=== PATIENT | male | born 1960 | race Caucasian/White ===

== ENCOUNTER 2017-06-02 09:07 | Emergency (ER) | payer BC, OTHER ==
--- NOTE | 2017-06-02 09:14 | PDOC ---
History of Present Illness - General Chief Complaint: Bite Stated Complaint: cat bite; he startled the cat yesterday and it bit his right index finger btwn the dip and pip joints.; slight swelling of finger and "annoying" pain. tetanus toxoid UTD 3 years ago. Time Seen by Provider: 06/02/17 09:14 Past History - Travel Traveled outside of the country in the last 30 days: No Close contact w/someone who was outside of country & ill: No - Past Medical History Allergies/Adverse Reactions: Allergies Allergy/AdvReac Type Severity Reaction Status Date / Time Penicillins Allergy Intermediate Rash Verified 06/02/17 09:07 Home Medications: Ambulatory Orders Aspirin Coated [Ecotrin -] 81 mg PO BID 08/29/13 Cholecalciferol (Vitamin D3) [Vitamin D3] 1,000 unit PO DAILY 08/29/13 Atorvastatin Ca [Lipitor] 20 mg PO HS 06/02/17 Clindamycin [Cleocin -] 300 mg PO Q6HPO #28 capsule 06/02/17 Dapagliflozin Propanediol [Farxiga] 5 mg PO DAILY 06/02/17 Ibuprofen [Motrin -] 600 mg PO TID #21 tablet 06/02/17 Insulin Glargine,Hum.rec.anlog [Lantus Solostar PEN (NF)] 30 units SQ DAILY Lisinopril [Prinivil] 10 mg PO DAILY 06/02/17 Metformin HCl [Glucophage] 1,000 mg PO DAILY 06/02/17 Diabetes: Yes Hypercholesterolemia: Yes - Immunization History Td Vaccination: No - Psycho/Social/Smoking Cessation Hx Anxiety: No Suicidal Ideation: No Smoking Status: No Smoking History: Never smoked Number of Cigarettes Smoked Daily: 0 Hx Alcohol Use: No Drug/Substance Use Hx: No Substance Use Type: Alcohol Review of Systems - Review of Systems Constitutional: No: Symptoms Reported, See HPI, Chills, Diaphoresis, Fever, Loss of Appetite, Malaise, Night Sweats, Weakness, Weight Stable, Unintentional Wgt. Loss, Unexplained wgt Loss, Other HEENTM: No: Symptoms Reported, See HPI, Eye Pain, Blurred Vision, Tearing, Recent change in vision, Double Vision, Cataracts, Ear Pain, Ocular Prothesis, Ear Discharge, Nose Pain, Nose Congestion, Tinnitus, Nose Bleeding, Hearing Loss , Throat Pain, Throat Swelling, Mouth Pain, Dental Problems, Difficulty Swallowing, Mouth Swelling, Other Respiratory: No: Symptoms reported, See HPI, Cough, Orthopnea, Shortness of Breath, SOB with Exertion, SOB at Rest, Stridor, Wheezing, Productive cough, Hemoptysis, Other ABD/GI: No: Symptoms Reported, See HPI, Abdominal Distended, Abd. Pain w/ defecation, Blood Streaked Bowels, Constipated, Diarrhea, Difficulty Swallowing , Nausea, Poor Appetite, Poor Fluid Intake, Rectal Bleeding, Vomiting, Indigestion, Abdominal cramping, Tarry Stools, Other : No: Symptoms Reported, See HPI, Burning, Dysuria, Discharge, Frequency, Flank Pain, Hematuria, Incontinence, Pain, Urgency, Testicular Mass, Testicular Swelling, Lesions, Testicular Pain, Other Musculoskeletal: Yes: Joint Swelling, Joint Stiffness (index finger on right). No: Symptoms Reported, See HPI, Back Pain, Gout, Joint Pain, Muscle Pain, Muscle Weakness, Neck Pain, Other Integumentary: No: Symptoms Reported, See HPI, Bruising, Change in Color, Change in Hair/Nails, Dryness, Erythema, Flushing, Lesions, Lumps, Pallor, Pruritus, Rash, Sweating, Other Neurological: No: Symptoms reported, See HPI, Headache, Numbness, Paresthesia, Pre-Existing Deficit, Seizure, Tingling, Tremors, Weakness, Unsteady Gait, Ataxia, Dizziness, Other *Physical Exam - Vital Signs Last Vital Signs Temp Pulse Resp BP Pulse Ox 99.0 F 76 18 151/82 100 06/02/17 09:07 06/02/17 09:07 06/02/17 09:07 06/02/17 09:07 06/02/17 09:07 - Physical Exam General Appearance: Yes: Nourished, Appropriately Dressed. No: Apparent Distress HEENT: positive: EOMI, SHAILESH, Normal ENT Inspection, Normal Voice, Symmetrical, TMs Normal, Pharynx Normal Neck: positive: Trachea midline, Normal Thyroid, Supple Respiratory/Chest: positive: Lungs Clear, Normal Breath Sounds Cardiovascular: positive: Regular Rhythm, Regular Rate, S1, S2 Gastrointestinal/Abdominal: positive: Normal Bowel Sounds, Soft Musculoskeletal: positive: Normal Inspection Extremity: positive: Normal Capillary Refill, Swelling (right index finger slight swelling but no redness; no lymphangitis). 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 Finger was more swollen by last night and slight;y more swollen today. Pt received vanco and clinda and home with clinda. tdap UTD ; last received TDAP vaccine 3 yrs ago when he stepped on a nail. Finger XR normal WBC baseline 10 today. Pt is to return for worsening swelling and or lymphangitis up the arm. No fever. *DC/Admit/Observation/Transfer Diagnosis at time of Disposition: Cat bite of finger - Discharge Dispostion Disposition: HOME Condition at time of disposition: Improved Admit: No - Prescriptions Prescriptions: Clindamycin [Cleocin -] 300 mg PO Q6HPO #28 capsule Ibuprofen [Motrin -] 600 mg PO TID #21 tablet - Patient Instructions Printed Discharge Instructions: How to Care for a Domestic Animal Bite, DI for Animal Bites - Post Discharge Activity Work/School Note: Back to Work
[2017-06-02 09:25] VITALS: BP 151/82; PULSE 76; TEMP 99; BMI 39.3
[2017-06-02] MEDS ORDERED: CLINDAMYCIN 900 MG PREMIX IVPB 50 ML IVPB ONE (09:47)
[2017-06-02] MEDS ORDERED: VANCOMYCIN 1,000 MG in DEXTROSE 5%-WATER - 250 ML IVPB ONE (09:47)
[2017-06-02] MEDS ORDERED: IBUPROFEN 600 MG TABLET (FP) PO ONE ×2 (09:48→09:57)
[2017-06-02] MEDS ORDERED: CLINDAMYCIN PHOSPHATE 300 MG/2 ML VIAL ONE (09:57)
[2017-06-02] MEDS ORDERED: VANCOMYCIN 1,000 MG VIAL (RESTRICTED TO ID ONLY) ONE (09:57)
[2017-06-02] MEDS ORDERED: CLINDAMYCIN PHOSPHATE 600 MG/4 ML VIAL ONE (09:58)
[2017-06-02 10:02] LABS: MCHC 33.6 g/dl (32.0-35.9); MEAN CELL VOLUME 83.3 fl (80-96); MEAN PLT VOLUME 9.3 fl (7.5-11.1); PLATELET COUNT 209 K/MM3 (134-434); RDW 12.9 % (11.9-15.9)
== END 2017-06-02 12:18 | disposition home or self-care (01) ==
LOC: FER 09:07
DX: S61.250A Open bite of right index finger without damage to nail, initial encounter (principal); W55.01XA Bitten by cat, initial encounter; Y93.89 Activity, other specified; Y92.9 Unspecified place or not applicable; E11.9 Type 2 diabetes mellitus without complications; E78.00 Pure hypercholesterolemia, unspecified
CPT/HCPCS: 36415; 73130-TC-RT; 85027; 99282-25

== ENCOUNTER 2023-06-10 12:43 | Observation (INO) | payer BC ==
[2023-06-10 12:59] VITALS: BMI 36.3
[2023-06-10] MEDS ORDERED: KETOROLAC TROMETHAMINE 60 MG/2 ML VIAL IM ONE (13:59)
[2023-06-10] MEDS ORDERED: KETOROLAC TROMETHAMINE 60 MG/2 ML VIAL ONE (14:35)
[2023-06-10 15:16] LABS: HEMATOCRIT 43.5 % (35.4-49); HEMOGLOBIN 14.6 G/dL (11.7-16.9); MCH 28.7 pg (25.7-33.7); MCHC 33.4 g/dl (32.0-35.9); MEAN CELL VOLUME 85.8 fl (80-96); MEAN PLT VOLUME 9.3 fl (7.5-11.1); PLATELET COUNT 173.4 10^3/uL (134-434); RBC 5.07 10^6/uL (4.00-5.60); RDW 15.1 % (11.9-15.9); WHITE BLOOD COUNT 7.9 10^3/uL (4.0-10.8)
[2023-06-10 15:18] LABS: INR 1.02 (0.83-1.09); PROTHROMBIN TIME (PATIENT) 11.8 SEC (9.7-13.0)
[2023-06-10 15:21] LABS: ACTIVATED PTT 27.9 SECONDS (25.2-36.5)
[2023-06-10 15:30] LABS: ALBUMIN 4.4 g/dl (3.4-5.0); ALK PHOS 42 U/L (45-117); ANION GAP 11 MMOL/L (8-16); BILIRUBIN,TOTAL 0.4 mg/dl (0.2-1); BLOOD UREA NITROGEN 22.1 mg/dl (7-18); CALCIUM 9.4 mg/dl (8.5-10.1); CHLORIDE 104 mmol/L (98-107); CO2 25 mmol/L (21-32); CREATININE 0.7 mg/dl (0.6-1.3); GLUCOSE,RANDOM 184 mg/dl (74-106); SGOT/AST 12.2 U/L (15-37); SGPT/ALT 16.8 U/L (7-52); SODIUM 140 mmol/L (136-145); TOT PROT 6.1 g/dl (6.4-8.2)
[2023-06-10 16:30] LABS: PLATELET ESTIMATE ADEQUATE
[2023-06-10] MEDS ORDERED: ACETAMINOPHEN 325 MG TABLET (FP) PO PRN (21:20)
[2023-06-10] MEDS ORDERED: DOCUSATE SODIUM 100 MG CAPSULE (FP) PO PRN (21:20)
[2023-06-10] MEDS ORDERED: oxyCODONE HCL 5 MG TABLET PO PRN (21:20)
[2023-06-10] MEDS ORDERED: INSULIN SLIDING SCALE (NOVOLOG) 1 VIAL SQ ONE (21:55)
[2023-06-10] MEDS: INSULIN SLIDING SCALE (NOVOLOG) 1 VIAL SQ SCH (21:56)
[2023-06-10] MEDS: ATORVASTATIN CA 20 MG TABLET (FP) PO SCH (21:56)
[2023-06-11] MEDS: INSULIN SLIDING SCALE (NOVOLOG) 1 VIAL SQ SCH ×4 (06:45→21:04)
[2023-06-11] MEDS: ASPIRIN COATED 81 MG TABLET.EC PO SCH (09:31)
[2023-06-11] MEDS: LISINOPRIL 10 MG TABLET PO SCH (09:32)
[2023-06-11 09:42] LABS: BLOOD UREA NITROGEN 22.9 mg/dl (7-18); CALCIUM 8.6 mg/dl (8.5-10.1); CREATININE 0.7 mg/dl (0.6-1.3); POTASSIUM 3.9 mmol/L (3.5-5.1)
[2023-06-11 10:39] LABS: BASO % 0.5 % (0-2.0); EOS % 2.8 % (0-4.5); HEMATOCRIT 40.1 % (35.4-49); HEMOGLOBIN 13.2 GM/dL (11.7-16.9); LYMPH % 31.8 % (8-40); MCHC 32.8 g/dl (32.0-35.9); MEAN CELL VOLUME 85.4 fl (80-96); MEAN PLT VOLUME 9.1 fl (7.5-11.1); MONO % 6.3 % (3.8-10.2); NEUT % 58.6 % (42.8-82.8); PLATELET COUNT 174 10^3/uL (134-434); RDW 13.7 % (11.9-15.9)
[2023-06-11] MEDS: ATORVASTATIN CA 20 MG TABLET (FP) PO SCH (21:04)
[2023-06-12] MEDS: INSULIN SLIDING SCALE (NOVOLOG) 1 VIAL SQ SCH ×2 (07:08→11:46)
[2023-06-12] MEDS: LISINOPRIL 10 MG TABLET PO SCH (09:21)
[2023-06-12] MEDS: ASPIRIN COATED 81 MG TABLET.EC PO SCH (09:21)
[2023-06-12 12:51] VITALS: BP 133/61; PULSE 82; RESP 19; TEMP 98.3
== END 2023-06-12 12:46 | disposition home or self-care (01) ==
LOC: FER 12:43 → FM/S 16:00
PROVIDERS: ADMIT Internal Medicine
PROC: 3E013VG Introduction of Insulin into Subcutaneous Tissue, Percutaneous Approach (ICD-10-PCS; principal; 2023-06-10)
PROC: 3E0233Z Introduction of Anti-inflammatory into Muscle, Percutaneous Approach (ICD-10-PCS; 2023-06-10)
DX: M25.562 Pain in left knee (principal); E11.9 Type 2 diabetes mellitus without complications; E66.9 Obesity, unspecified; Z96.652 Presence of left artificial knee joint; Z88.0 Allergy status to penicillin
CPT/HCPCS: 36415; 73560-TC-LT-FY; 80048; 80053; 82962; 85025; 85610; 85651; 85730; 86140; 86850; 86900; 86901; 93971-TC; 96372; 97116-GP; 97162-GP; 99285-25; G0378

== ENCOUNTER 2023-07-24 19:16 | Emergency (ER) | payer BC ==
[2023-07-24 19:23] VITALS: BP 148/90; PULSE 90; RESP 18; TEMP 98.4; BMI 35.9
== END 2023-07-24 20:44 | disposition home or self-care (01) ==
LOC: FER 19:16
DX: M96.830 Postprocedural hemorrhage of a musculoskeletal structure following a musculoskeletal system procedure (principal)
CPT/HCPCS: 99282-25